=== PATIENT | female | born 1995 | race American Indian/Alaskan Native ===

== ENCOUNTER 2020-07-21 13:24 | Emergency (ER) | payer SELFPAY ==
--- NOTE | 2020-07-21 14:05 | Emergency Department Report ---
ED General Adult HPI - General Chief complaint: Abdominal Pain Stated complaint: N/V PUI?: Yes Time Seen by Provider: 07/21/20 13:58 Source: patient, EMS ( EMS documentation not available at time of chart dictation ), RN notes reviewed Mode of arrival: Stretcher Limitations: No Limitations - History of Present Illness Initial comments: The patient was evaluated in the emergency department for symptoms described in the history of present illness. He/she was evaluated in the context of the global COVID-19 pandemic, which necessitated consideration that the patient might be at risk for infection with the virus that causes COVID-19. Institutional protocols and algorithms that pertain to the evaluation of patients at risk for COVID-19 are in a state of rapid change based on information released by regulatory bodies including the CDC and federal and state organizations. These policies and algorithms were followed during the patient's care in the emergency department. Please note that these policies, procedures and recommendations changed on a rapid basis. During the entire history and physical examination, I had on complete personal protective equipment. This is a 25-year-old female. She is not known to myself previously. She has a history of cannabis use, possible cannabinoid hyperemesis syndrome, reports not having consumed cannabis for about 2 to 3 weeks, questionable history of ulcerative colitis. She reports that she was admitted to [facility] in [place], last year, had a CT scan which demonstrated "an inflamed large intestine", accompanied by intractable nausea and vomiting. She was scheduled for colonoscopy, but was not able to tolerate the prep, and therefore she reports not having had a complete colonoscopy, if any, and reports no pathology. She is currently maintained on Bentyl and Zofran, but is not on any immune suppressing medications. She presents to the ER today with a complaint of recurrent nausea and vomiting, epigastric discomfort. She was recently admitted to [facility] for the same, Including intractable nausea and vomiting. She was incidentally diagnosed with Covid while at this hospital. She denies headache, neck pain, chest pain, shortness of breath, diaphoresis, hematemesis, bright red blood per rectum, black tarry stool, dysuria. She has mild abdominal cramping, and she feels nauseous. Her symptoms get better with a hot bath or hot shower. The patient states "I cannot keep anything down." She has tried [id number] remedies, in addition to this prescription medications. The symptoms have been intermittent for the past few weeks -: Gradual, week(s) Location: abdomen Radiation: non-radiation Quality: aching Consistency: intermittent Improves with: medication, rest Worsens with: other (Hot bath, hot shower) - Related Data Home Medications Medication Instructions Recorded Confirmed Last Taken Bentyl 10 mg PO DAILY 07/21/20 07/21/20 Unknown Ondansetron [Zofran ODT TAB] 4 mg PO DAILY 07/21/20 07/21/20 Unknown Previous Rx's Medication Instructions Recorded Last Taken Type Unique Root [Unique] 250 mg PO QID PRN #30 capsule 07/21/20 Unknown Rx Metoclopramide [Reglan] 10 mg PO QID PRN #30 tablet 07/21/20 Unknown Rx Promethazine HCl [Phenergan SUPPOS] 25 mg RC Q6HR PRN #15 supp.rect 07/21/20 Unknown Rx Allergies Allergy/AdvReac Type Severity Reaction Status Date / Time No Known Allergies Allergy Verified 07/21/20 17:08 ED Review of Systems ROS: Stated complaint: N/V Other details as noted in HPI Constitutional: other (Patient denies loss of taste and smell). denies: fever, malaise, weakness Eyes: denies: eye discharge Respiratory: denies: cough Cardiovascular: denies: chest pain Gastrointestinal: nausea, vomiting. denies: hematemesis, melena, hematochezia Genitourinary: denies: dysuria Musculoskeletal: denies: back pain Neurological: weakness Hematological/Lymphatic: denies: easy bleeding ED Past Medical Hx - Past Medical History Previous Medical History?: Yes Additional medical history: colitis - Surgical History Past Surgical History?: No - Social History Smoking Status: Never Smoker Substance Use Type: None - Medications Home Medications: Home Medications Medication Instructions Recorded Confirmed Last Taken Type Bentyl 10 mg PO DAILY 07/21/20 07/21/20 Unknown History Unique Root [Unique] 250 mg PO QID PRN #30 capsule 07/21/20 Unknown Rx Metoclopramide [Reglan] 10 mg PO QID PRN #30 tablet 07/21/20 Unknown Rx Ondansetron [Zofran ODT TAB] 4 mg PO DAILY 07/21/20 07/21/20 Unknown History Promethazine HCl [Phenergan SUPPOS] 25 mg RC Q6HR PRN #15 supp.rect 07/21/20 Unknown Rx ED Physical Exam - General Limitations: No Limitations General appearance: alert, in no apparent distress - Head Head exam: Present: atraumatic, normocephalic - Eye Eye exam: Present: normal appearance, EOMI. Absent: nystagmus - ENT ENT exam: Present: normal exam, normal orophraynx, mucous membranes moist, normal external ear exam - Neck Neck exam: Present: normal inspection, full ROM. Absent: tenderness, meningismus - Respiratory Respiratory exam: Present: normal lung sounds bilaterally. Absent: respiratory distress, wheezes, rales, rhonchi, stridor, decreased breath sounds - Cardiovascular Cardiovascular Exam: Present: regular rate, normal rhythm, normal heart sounds. Absent: bradycardia, tachycardia, irregular rhythm, systolic murmur, diastolic murmur, rubs, gallop - GI/Abdominal GI/Abdominal exam: Present: soft, normal bowel sounds. Absent: distended, tenderness, guarding, rebound, rigid, pulsatile mass - Extremities Exam Extremities exam: Present: normal inspection, full ROM, other (2+ pulses noted in the bilateral upper and lower extremities. There is no palpable cord. negative Homans sign. Muscular compartments are soft. The pelvis is stable.). Absent: pedal edema, calf tenderness - Back Exam Back exam: Present: normal inspection, full ROM. Absent: tenderness, CVA tenderness (R), CVA tenderness (L), paraspinal tenderness, vertebral tenderness - Neurological Exam Neurological exam: Present: alert, other (No facial droop. Tongue midline. Extraocular movements intact bilaterally. Facial sensation intact to light touch in V1, V2, V3 distribution bilaterally. 5 and a 5 strength in 4 extremities. Sensation intact to light touch in 4 extremities.). Absent: motor sensory deficit - Psychiatric Psychiatric exam: Present: normal affect, normal mood - Skin Skin exam: Present: warm, dry, intact, normal color. Absent: rash ED Course Vital Signs 07/21/20 07/21/20 07/21/20 13:57 15:11 15:22 Temperature 99.7 F H Pulse Rate 90 Respiratory 18 18 18 Rate Blood Pressure 140/88 [Right] O2 Sat by Pulse 100 100 Oximetry O2 Sat by Pulse Oximetry [ Digit-Finger] 07/21/20 07/21/2007/21/21 16:11 17:02 17:45 Temperature 99 F Pulse Rate 69 Respiratory 18 18 Rate Blood Pressure 134/80 [Right] O2 Sat by Pulse 100 Oximetry O2 Sat by Pulse 99 Oximetry [ Digit-Finger] - Reevaluation(s) Reevaluation #1: 07/21/20 14:49 Differential diagnosis, including but not limited to: Cannabinoid hyperemesis syndrome, GERD, gastritis, hiatal hernia, viral syndrome, dehydration, electrolyte derangement, incidental COVID-19 Assessment and plan: 25-year-old female, with episodic episodes of nausea and vomiting, in the context of cannabis use, suspicious for cannabinoid hyperemesis syndrome. On my initial assessment, she is resting comfortably in stretcher, with a soft benign belly, playing on his cellular phone, saturating at 99% on room air, does not appear to be in any acute distress. Doubt acute surgical process. Counseled patient on natural history of cannabinoid hyperemesis syndrome. Will check EKG, urinalysis, appropriate laboratory studies, treat symptoms and reassess. We will attempt to obtain medical records from [facility], patient has provided verbal consent for us to obtain her medical records for continuity of care. Reassess after initial data points. 07/21/20 16:56 Prior medical records reviewed and appreciated. Patient had a CT scan abdomen pelvis which was negative for acute findings. Patient has felt much improved while here in the emergency room. She is able to tolerate liquid feeds. Mild decrease in CO2 comprehensive metabolic panel likely secondary to history of nausea and vomiting. Patient suitable for trial of outpatient management, she will be referred to local primary care and/or gastroenterology, counseled to discontinue/avoid cannabis consumption, she can continue Zofran and as needed Bentyl, we will also discharged with Reglan, Phenergan, unique tablets. From a Covid standpoint, not hypoxic, supportive care. 07/21/20 18:03 Final reassessment. No active vomiting. Playing on her cellular phone. Tolerated oral feeds. Patient counseled on natural history of cannabinoid hyperemesis syndrome, as well as COVID-19. She has articulated understanding. - Pulse Oximetry Interpretation Digit-Finger Initial Pulse Oximetry Readin O2 Sat by Pulse Oximetry: 99 Actions Taken: none ED Medical Decision Making - Lab Data Result diagrams: 07/21/20 15:09 07/21/20 15:09 Vital Signs 07/21/20 07/21/20 07/21/20 13:57 14:50 15:11 Temperature Pulse Rate Respiratory 18 18 Rate Blood Pressure [Right] O2 Sat by Pulse 100 Oximetry O2 Sat by Pulse 99 Oximetry [ Digit-Finger] 07/21/20 15:22 Temperature 99.7 F H Pulse Rate 90 Respiratory 18 Rate Blood Pressure 140/88 [Right] O2 Sat by Pulse 100 Oximetry O2 Sat by Pulse Oximetry [ Digit-Finger] Lab Results 07/21/20 07/21/20 Range/Units 15:09 15:09 WBC 5.6 (4.5-11.0) K/mm3 RBC 4.30 (3.65-5.03) M/mm3 Hgb 11.7 (10.1-14.3) gm/dl Hct 35.6 (30.3-42.9) % MCV 83 (79-97) fl MCH 27 L (28-32) pg MCHC 33 (30-34) % RDW 13.6 (13.2-15.2) % Plt Count 207 (140-440) K/mm3 HCG, Quant < 2 (0-4) mIU/mL Vital Signs 07/21/20 07/21/20 07/21/20 13:57 15:11 15:22 Temperature 99.7 F H Pulse Rate 90 Respiratory 18 18 18 Rate Blood Pressure 140/88 [Right] O2 Sat by Pulse 100 100 Oximetry O2 Sat by Pulse Oximetry [ Digit-Finger] 07/21/20 15:56 Temperature Pulse Rate Respiratory Rate Blood Pressure [Right] O2 Sat by Pulse Oximetry O2 Sat by Pulse 99 Oximetry [ Digit-Finger] Lab Results 07/21/20 07/21/20 07/21/20 Range/Units 15:09 15:09 15:09 WBC 5.6 (4.5-11.0) K/mm3 RBC 4.30 (3.65-5.03) M/mm3 Hgb 11.7 (10.1-14.3) gm/dl Hct 35.6 (30.3-42.9) % MCV 83 (79-97) fl MCH 27 L (28-32) pg MCHC 33 (30-34) % RDW 13.6 (13.2-15.2) % Plt Count 207 (140-440) K/mm3 Sodium 134 L (137-145) mmol/L Potassium 3.7 (3.6-5.0) mmol/L Chloride 102.3 (98-107) mmol/L Carbon Dioxide 17 L (22-30) mmol/L Anion Gap 18 mmol/L BUN 4 L (7-17) mg/dL Creatinine 0.6 (0.6-1.2) mg/dL Estimated GFR > 60 ml/min BUN/Creatinine Ratio 7 % Glucose 71 (65-100) mg/dL Calcium 8.7 (8.4-10.2) mg/dL Magnesium 1.80 (1.7-2.3) mg/dL Total Bilirubin 0.40 (0.1-1.2) mg/dL AST 25 (5-40) units/L ALT 14 (7-56) units/L Alkaline Phosphatase 50 (35-129) units/L Total Creatine Kinase 128 (30-135) units/L Total Protein 7.0 (6.3-8.2) g/dL Albumin 4.0 (3.9-5) g/dL Albumin/Globulin Ratio 1.3 % Lipase (13-60) units/L HCG, Quant < 2 (0-4) mIU/mL 07/21/20 Range/Units 15:09 WBC (4.5-11.0) K/mm3 RBC (3.65-5.03) M/mm3 Hgb (10.1-14.3) gm/dl Hct (30.3-42.9) % MCV (79-97) fl MCH (28-32) pg MCHC (30-34) % RDW (13.2-15.2) % Plt Count (140-440) K/mm3 Sodium (137-145) mmol/L Potassium (3.6-5.0) mmol/L Chloride (98-107) mmol/L Carbon Dioxide (22-30) mmol/L Anion Gap mmol/L BUN (7-17) mg/dL Creatinine (0.6-1.2) mg/dL Estimated GFR ml/min BUN/Creatinine Ratio % Glucose (65-100) mg/dL Calcium (8.4-10.2) mg/dL Magnesium (1.7-2.3) mg/dL Total Bilirubin (0.1-1.2) mg/dL AST (5-40) units/L ALT (7-56) units/L Alkaline Phosphatase (35-129) units/L Total Creatine Kinase (30-135) units/L Total Protein (6.3-8.2) g/dL Albumin (3.9-5) g/dL Albumin/Globulin Ratio % Lipase 16 (13-60) units/L HCG, Quant (0-4) mIU/mL - EKG Data -: EKG Interpreted by Me EKG shows normal: sinus rhythm Rate: normal - EKG Data 07/21/20 15:55 EKG interpreted at 15: 50 Sinus rhythm, 67 bpm. Normal axis, normal intervals, juvenile T wave inversion V2, high left ventricular voltage, minimal motion artifact. This is not a STEMI. Critical care attestation.: If time is entered above; I have spent that time in minutes in the direct care of this critically ill patient, excluding procedure time. ED Disposition Clinical Impression: History of nausea and vomiting, Personal history of COVID-19, History of marijuana use, Dehydration Disposition: [id number] TO HOME OR SELFCARE Is pt being admited?: No Does the pt Need Aspirin: No Condition: Good Instructions: Cannabis Use Disorder, COVID-19, Abdominal Pain (ED) Additional Instructions: As we discussed, patient may have a component of cannabinoid hyperemesis syndrome. Treatment is to discontinue and avoid consumption of marijuana, cannabis. Cannabis may remain in the tissues for up to 6 weeks after last episode of consumption. Therefore, it is possible that patient may have persistent and intermittent symptoms. Patient may continue the Bentyl and Zofran, and she is also being prescribed additional medications for nausea and vomiting, including Reglan, Phenergan suppositories, and unique tablets. Take these medications as needed, and directed. Patient may also take a hot bath/hot shower as often as as needed for symptomatic relief. Patient may also apply/red hot sauce to her anterior abdominal wall, which she may purchase from any supermarket, which may assist with abdominal pain and discomfort as well as nausea and vomiting. Minimize/avoid consumption of alcohol, Motrin, ibuprofen, Naprosyn, Aleve, heavy spicy foods. Avoid consumption of tobacco, smoke products, and marijuana products. Follow-up with your primary care doctor within the next month. Follow-up with a bilingual call center representative in the next month. Patient may take [id number] Pepcid, Protonix, or acetaminophen as needed for pain. Please return to the emergency room right away with new pain, worsened pain, migration of pain, projectile vomiting, change in mental status, confusion, inability to tolerate liquid feeds. Drink at least 6 cups of water per day, or patient may drink Pedialyte, which sh e may purchase [id number], which is also an excellent rehydration fluid. From a Covid perspective, patient may be asymptomatic, or she may develop loss of taste, loss of smell, diarrhea, fatigue, body aches, cough, and shortness of breath. If any of these symptoms developed and become intolerable to the patient, please seek emergency medical attention right away. Otherwise, please make certain to self isolate and self quarantine for at least 10 to 14 days, wash hands frequently, thoroughly and often, always wear a mask, and avoid exposure/interactions with a very young, very elderly, and those with chronic medical conditions, or those with immune compromise. Prescriptions: Unique Root [Unique] 250 mg PO QID PRN #30 capsule PRN Reason: Nausea Promethazine HCl [Phenergan SUPPOS] 25 mg RC Q6HR PRN #15 supp.rect PRN Reason: Nausea Metoclopramide [Reglan] 10 mg PO QID PRN #30 tablet PRN Reason: Nausea Referrals: MANNY MERCADO MD [Staff Physician] - 3-5 Days [facility] [Provider Group] - 3-5 Days [facility] [Provider Group] - 3-5 Days
[2020-07-21] MEDS ORDERED: METOCLOPRAMIDE 10 MG/2 ML INJ IV ONE (14:22)
[2020-07-21] MEDS ORDERED: ACETAMINOPHEN 325 MG TAB PO ONE (14:22)
[2020-07-21] MEDS ORDERED: LACTATED RINGERS 1,000 ML IV ONE (14:22)
[2020-07-21] MEDS ORDERED: FAMOTIDINE 20 MG/2 ML INJ IV ONE (14:22)
[2020-07-21 15:25] LABS: Hematocrit 35.6 % (30.3-42.9); Hemoglobin 11.7 gm/dl (10.1-14.3); Mean Corpuscular HGB Conc 33 % (30-34); Mean Corpuscular Volume 83 fl (79-97); Platelet Count 207 K/mm3 (140-440); Red Cell Distribution Width 13.6 % (13.2-15.2)
[2020-07-21 16:11] LABS: Alanine Aminotransferase 14 units/L (7-56); Blood Urea Nitrogen 4 mg/dL (7-17); Calcium 8.7 mg/dL (8.4-10.2); Hemolysis Index 47
[2020-07-21 16:21] LABS: BUN/Creatinine Ratio 7
[2020-07-21 17:05] LABS: Bilirubin,Urine NEG (Negative); Blood,Urine LG (Negative); Color,Urine Straw (Yellow); Mucus,Urine FEW /HPF; Protein,Urine <15 mg/dL mg/dL (Negative); Urobilinogen,Urine < 2.0 mg/dL (<2.0)
[2020-07-21] MEDS ORDERED: PROMETHAZINE 12.5 MG/10 ML ORAL LIQD PO ONE ×2 (17:08)
[2020-07-21] MEDS ORDERED: SUCRALFATE 1 GM/10 ML ORAL LIQD PO ONE (17:08)
[2020-07-21 17:11] LABS: Amphetamine Screen,Urine Negative; Benzodiazepines Screen,Urine Negative; Cocaine Screen,Urine Negative; Methadone Screen,Urine Negative; Opiate Screen,Urine Negative
[2020-07-21 17:34] LABS: Cannabinoid Screen,Urine Positive
[2020-07-21 17:45] VITALS: BP 134/80
--- NOTE | 2020-07-24 10:31 | Electrocardiograph Report ---
[facility] Test Date: 2020-07-21 Test Time: 15:50:52 Pat Name: NAZ BUSTILLO Department: Room: Gender: F General Inspector: FELECIA : [id number] Requested By: AMANDA SALINAS Order Number: [id number] Reading MD: Ella Plaza Measurements Intervals [place] Rate: 67 P: 66 [place]: 119 QRS: 81 QRSD: 80 T: 59 QT: 398 QTc: 421 Interpretive Statements Sinus rhythm No previous ECG available for comparison Electronically Signed On 07-24-2020 10:30:51 EDT by Ella Plaza
== END 2020-07-21 19:01 | disposition home or self-care (01) ==
LOC: ED 13:24
DX: E86.0 Dehydration (principal); Z79.899 Other long term (current) drug therapy; Z87.898 Personal history of other specified conditions; Z86.16 Personal history of COVID-19
CPT/HCPCS: 36415; 80053; 80307; 81001; 82550; 83690; 83735; 84702; 85027; 93005; 96361; 96374; 96375; 99284; J2765; J7120; Q0169

== ENCOUNTER 2020-11-28 16:18 | Emergency (ER) | payer OTHER | END 2020-11-28 16:31 | disposition left against medical advice (07) | LOC: ED 16:18 | DX: R11.2 Nausea with vomiting, unspecified (principal); Z53.21 Procedure and treatment not carried out due to patient leaving prior to being seen by health care provider ==